=== PATIENT | female | born 1990 | race Caucasian/White ===

== ENCOUNTER 2021-08-08 01:57 | Emergency (ER) | payer SELFPAY ==
[2021-08-08 03:12] LABS: BASO % 0.5 % (0-2.0); EOS % 0.7 % (0-4.5); HEMATOCRIT 32.3 % (32.4-45.2); HEMOGLOBIN 10.9 GM/dL (10.7-15.3); LYMPH % 28.5 % (8-40); MCH 26.2 pg (25.7-33.7); MCHC 33.7 g/dl (32.0-36.0); MEAN CELL VOLUME 77.7 fl (80-96); MEAN PLT VOLUME 7.8 fl (7.5-11.1); MONO % 4.5 % (3.8-10.2); NEUT % 65.8 % (42.8-82.8); PLATELET COUNT 272 10^3/uL (134-434); RBC 4.16 M/mm3 (3.60-5.2); RDW 15.3 % (11.6-15.6); WHITE BLOOD COUNT 6.7 K/mm3 (4.0-10.0)
[2021-08-08 03:35] LABS: ALBUMIN 3.4 g/dl (3.4-5.0); BLOOD UREA NITROGEN 8.3 mg/dL (7-18)
[2021-08-08 03:38] LABS: CREATININE 0.6 mg/dL (0.55-1.3)
[2021-08-08 03:39] LABS: BILIRUBIN,TOTAL 0.2 mg/dL (0.2-1); TOT PROT 6.7 g/dl (6.4-8.2)
[2021-08-08 03:51] LABS: HCG,QUALITATIVE URINE Positive
[2021-08-08 03:55] LABS: EPI CELLS 7 /uL (0-25.1); HYALINE CASTS 0 /uL (0-3.1); PH,URINE 6.5 (5.0-8.0); URINE APPEARANCE CLEAR; URINE BACTERIA 35 /uL (0-1359); URINE BILIRUBIN NEGATIVE (NEGATIVE); URINE COLOR YELLOW; URINE GLUCOSE (UA) NEGATIVE (NEGATIVE); URINE KETONE NEGATIVE (NEGATIVE); URINE LEUK ESTERASE TRACE (NEGATIVE); URINE NITRITE NEGATIVE (NEGATIVE); URINE PROTEIN NEGATIVE (NEGATIVE); URINE RBC 1 /uL (0-23.9); URINE UROBILINOGEN 0.2 mg/dL (0.2-1.0); URINE WBC 12 /uL (0-25.8)
[2021-08-08] MEDS ORDERED: ACETAMINOPHEN 1000 MG/100 ML BAG IVPB ONE (05:41)
[2021-08-08] MEDS ORDERED: CEFTRIAXONE 1,000 MG in DEXTROSE 5%-WATER - 50 ML IVPB ONE (05:41)
[2021-08-08] MEDS ORDERED: ACETAMINOPHEN INJECTION 100 ML IVPB ONE (05:47)
[2021-08-08] MEDS ORDERED: CEFTRIAXONE 1 GM/50 ML BAG ONE (05:48)
[2021-08-08 09:25] VITALS: TEMP 98.4
[2021-08-08 11:46] VITALS: BP 110/70; PULSE 71
== END 2021-08-08 11:46 | disposition home or self-care (01) ==
LOC: JER 01:57
PROC: 3E033GC Introduction of Other Therapeutic Substance into Peripheral Vein, Percutaneous Approach (ICD-10-PCS; principal; 2021-08-08)
DX: O46.8X1 Other antepartum hemorrhage, first trimester (principal); O23.41 Unspecified infection of urinary tract in pregnancy, first trimester; Z3A.01 Less than 8 weeks gestation of pregnancy
CPT/HCPCS: 36415; 76817-TC; 80053; 81003; 84702; 84703; 85025; 86850; 86900; 86901; 87086; 99284-25

== ENCOUNTER 2022-04-05 08:15 | Inpatient (IN) | payer OTHER ==
[2022-04-05] MEDS ORDERED: DINOPROSTONE 10 MG VAGINAL SUPPOSITORY VG ONE (09:42)
[2022-04-05] MEDS: ELECTROLYTE-148 SOLN 1,000 ML IV SCH (10:00)
[2022-04-05 10:36] VITALS: BMI 25.7
[2022-04-05 11:47] LABS: BASO % 0.4 % (0-2.0); EOS % 0.4 % (0-4.5); HEMATOCRIT 35.9 % (32.4-45.2); HEMOGLOBIN 12.4 GM/dL (10.7-15.3); INR 0.85 (0.83-1.09); LYMPH % 23.1 % (8-40); MCH 31.7 pg (25.7-33.7); MCHC 34.6 g/dl (32.0-36.0); MEAN CELL VOLUME 91.6 fl (80-96); MEAN PLT VOLUME 8.6 fl (7.5-11.1); MONO % 5.2 % (3.8-10.2); NEUT % 70.9 % (42.8-82.8); PLATELET COUNT 252 10^3/uL (134-434); PROTHROMBIN TIME (PATIENT) 9.8 SEC (9.7-13.0); RBC 3.92 M/mm3 (3.60-5.2); RDW 12.9 % (11.6-15.6); WHITE BLOOD COUNT 6.6 K/mm3 (4.0-10.0)
[2022-04-05 11:50] LABS: ACTIVATED PTT 29.9 SECONDS (25.2-36.5)
[2022-04-05 12:04] LABS: CALCIUM 8.8 mg/dL (8.5-10.1)
[2022-04-05 12:05] LABS: BLOOD UREA NITROGEN 11.1 mg/dL (7-18)
[2022-04-05 12:08] LABS: CREATININE 0.7 mg/dL (0.55-1.3)
[2022-04-05] MEDS ORDERED: PROMETHAZINE HCL 25 MG/1 ML VIAL IVPB ONE (22:14)
[2022-04-05] MEDS ORDERED: BUTORPHANOL TARTRATE 1 MG/ML VIAL IVPB ONE (22:14)
[2022-04-05] MEDS ORDERED: OXYTOCIN 30 UNITS in 0.9% NS 30 UNIT/500 ML INFUS.BAG IVPB ONE (22:55)
[2022-04-05] MEDS: OXYTOCIN 30 UNITS in 0.9% NS 30 UNIT/500 ML INFUS.BAG IVPB SCH (23:00)
[2022-04-06] MEDS: ELECTROLYTE-148 SOLN 1,000 ML IV SCH ×3 (00:30→20:35)
[2022-04-06] MEDS ORDERED: BUTORPHANOL TARTRATE 2 MG/ML VIAL ONE (00:36)
[2022-04-06] MEDS ORDERED: PROMETHAZINE HCL 25 MG/1 ML VIAL ONE (00:37)
[2022-04-06] MEDS ORDERED: BUPIVACAINE HCL/PF 0.25% (2.5MG/ML) 10 ML VIAL ONE ×3 (07:36→23:40)
[2022-04-06] MEDS ORDERED: FENTANYL/BUPIVACAINE/NS/PF - PCEA - 50 ML DISP.SYRIN EP ONE ×5 (07:54→23:40)
[2022-04-06] MEDS: FENTANYL/BUPIVACAINE/NS/PF - PCEA - 50 ML DISP.SYRIN EP SCH ×5 (07:55→23:53)
[2022-04-06] MEDS ORDERED: NALOXONE HCL 0.4 MG/ML VIAL IVPUSH PRN (08:08)
[2022-04-06] MEDS: OXYTOCIN 30 UNITS in 0.9% NS 30 UNIT/500 ML INFUS.BAG IVPB SCH (20:30)
[2022-04-06] MEDS ORDERED: FENTANYL CITRATE/PF 50 MCG/ML VIAL ONE ×2 (21:55→23:41)
[2022-04-07] MEDS ORDERED: FENTANYL/BUPIVACAINE/NS/PF - PCEA - 50 ML DISP.SYRIN EP ONE ×2 (02:18→05:13)
[2022-04-07] MEDS: FENTANYL/BUPIVACAINE/NS/PF - PCEA - 50 ML DISP.SYRIN EP SCH (02:30)
[2022-04-07] MEDS ORDERED: BUPIVACAINE HCL/PF 0.25% (2.5MG/ML) 10 ML VIAL ONE ×2 (03:35→06:21)
[2022-04-07] MEDS ORDERED: FENTANYL CITRATE/PF 50 MCG/ML VIAL ONE ×3 (03:36→08:16)
[2022-04-07] MEDS ORDERED: CITRIC ACID/SODIUM CITRATE 30 ML UNIT-DOSE CUP PO ONE (08:11)
[2022-04-07] MEDS ORDERED: LIDO 2%/EPI 1:200000 PRESRVFRE (20 ML SDVIAL) ONE ×2 (08:14)
[2022-04-07] MEDS ORDERED: OXYTOCIN 30 UNITS in 0.9% NS 30 UNIT/500 ML INFUS.BAG IVPB ONE (08:25)
[2022-04-07] MEDS ORDERED: morphine SULFATE/PF 1 MG/2 ML (2cc Syringe - QUVA) EP ONE (08:40)
[2022-04-07] MEDS ORDERED: morphine SULFATE/PF 1 MG/2 ML (2cc Syringe - QUVA) ONE (08:50)
[2022-04-07] MEDS ORDERED: ceFAZolin SODIUM 1 GM VIAL ONE ×2 (08:58)
[2022-04-07] MEDS ORDERED: IBUPROFEN 800 MG/8 ML IJ IVPB PRN (09:38)
[2022-04-07] MEDS ORDERED: BENZOCAINE 28 GM HEMORRHOIDAL OINTMENT TP PRN (09:38)
[2022-04-07] MEDS ORDERED: METHYLERGONOVINE MALEATE 0.2 MG/1 ML AMP IM PRN (09:38)
[2022-04-07] MEDS ORDERED: WITCH HAZEL 50% (TUCKS) 40 PAD/JAR PAD TP PRN (09:38)
[2022-04-07] MEDS ORDERED: BENZOCAINE 20% 57 GM BOTTLE TP PRN (09:38)
[2022-04-07] MEDS ORDERED: FENTANYL/BUPIVACAINE/NS/PF - PCEA - 50 ML DISP.SYRIN EP SCH (09:45)
[2022-04-07] MEDS ORDERED: NALOXONE HCL 0.4 MG/ML VIAL IVPUSH PRN (09:45)
[2022-04-07] MEDS: OXYTOCIN 20 UNITS in 0.9% NS 20 UNIT/1,000 ML INFUS.BAG IV SCH ×2 (10:30→15:37)
[2022-04-07] MEDS: PRENATAL VITAMINS W/ FOLIC ACID TABLET (FP) PO SCH (12:16)
[2022-04-07] MEDS ORDERED: OXYTOCIN 20 UNITS in 0.9% NS 20 UNIT/1,000 ML INFUS.BAG IV ONE (15:33)
[2022-04-07] MEDS ORDERED: oxyCODONE HCL 5 MG TABLET PO PRN (21:38)
[2022-04-08 09:01] LABS: BASO % 0.5 % (0-2.0); EOS % 0.4 % (0-4.5); HEMATOCRIT 31.8 % (32.4-45.2); HEMOGLOBIN 10.8 GM/dL (10.7-15.3); LYMPH % 15.3 % (8-40); MCH 31.2 pg (25.7-33.7); MCHC 34.1 g/dl (32.0-36.0); MEAN CELL VOLUME 91.6 fl (80-96); MEAN PLT VOLUME 8.5 fl (7.5-11.1); NEUT % 79.8 % (42.8-82.8); PLATELET COUNT 312 10^3/uL (134-434); RBC 3.47 M/mm3 (3.60-5.2); RDW 13.4 % (11.6-15.6); WHITE BLOOD COUNT 11.8 K/mm3 (4.0-10.0)
[2022-04-08] MEDS ORDERED: BISACODYL 10 MG SUPP.RECT RC PRN (09:38)
[2022-04-08] MEDS: ACETAMINOPHEN 325 MG TABLET (FP) PO PRN (09:57)
[2022-04-08] MEDS: PRENATAL VITAMINS W/ FOLIC ACID TABLET (FP) PO SCH (09:57)
[2022-04-08] MEDS: SIMETHICONE 80 MG TAB.CHEW (FP) PO PRN ×2 (09:57→19:48)
[2022-04-08] MEDS ORDERED: DIPHTH,PERTUSS(ACELL),TET 0.5 ML DISP.SYRIN IM ONE (10:00)
[2022-04-08] MEDS ORDERED: FLU VACC QS2022-23(6MOS UP)/PF 60 MCG/0.5 ML SYRINGE IM ONE (10:00)
[2022-04-08] MEDS: IBUPROFEN 600 MG TABLET (FP) PO PRN ×2 (12:10→19:47)
[2022-04-08] MEDS: OXYTOCIN 20 UNITS in 0.9% NS 20 UNIT/1,000 ML INFUS.BAG IV SCH (16:40)
[2022-04-09] MEDS: SIMETHICONE 80 MG TAB.CHEW (FP) PO PRN ×3 (00:33→20:22)
[2022-04-09] MEDS: ACETAMINOPHEN 325 MG TABLET (FP) PO PRN (00:33)
[2022-04-09] MEDS: PRENATAL VITAMINS W/ FOLIC ACID TABLET (FP) PO SCH (11:00)
[2022-04-09] MEDS: IBUPROFEN 600 MG TABLET (FP) PO PRN ×2 (11:57→20:21)
[2022-04-09] MEDS: FENTANYL/BUPIVACAINE/NS/PF - PCEA - 50 ML DISP.SYRIN EP SCH (13:01)
[2022-04-09 22:09] VITALS: RESP 17
[2022-04-10] MEDS: SIMETHICONE 80 MG TAB.CHEW (FP) PO PRN (04:00)
[2022-04-10] MEDS: IBUPROFEN 600 MG TABLET (FP) PO PRN (04:00)
[2022-04-10 09:05] VITALS: BP 118/74; PULSE 82; TEMP 98.3
[2022-04-10] MEDS: PRENATAL VITAMINS W/ FOLIC ACID TABLET (FP) PO SCH (09:35)
[2022-04-10] MEDS ORDERED: DIPHTH,PERTUSS(ACELL),TET 0.5 ML DISP.SYRIN IM ONE (10:00)
[2022-04-10 11:00] LABS: BASO % 0.3 % (0-2.0); EOS % 0.9 % (0-4.5); HEMOGLOBIN 9.5 GM/dL (10.7-15.3); LYMPH % 17.7 % (8-40); MCH 31.4 pg (25.7-33.7); MEAN CELL VOLUME 92.5 fl (80-96); MEAN PLT VOLUME 8.1 fl (7.5-11.1); MONO % 3.2 % (3.8-10.2); NEUT % 77.9 % (42.8-82.8); PLATELET COUNT 323 10^3/uL (134-434); RBC 3.02 M/mm3 (3.60-5.2); RDW 13.5 % (11.6-15.6); WHITE BLOOD COUNT 10.6 K/mm3 (4.0-10.0)
== END 2022-04-10 12:23 | disposition home or self-care (01) | DRG 540 ==
LOC: JLDR 08:15 → J3W 04-07 11:43
PROVIDERS: ADMIT Obstetrics & Gynecology; ATTEND Obstetrics & Gynecology
PROC: 3E0P7VZ Introduction of Hormone into Female Reproductive, Via Natural or Artificial Opening (ICD-10-PCS; 2022-04-05)
PROC: 10D00Z1 Extraction of Products of Conception, Low, Open Approach (ICD-10-PCS; principal; 2022-04-07)
DX: O61.0 Failed medical induction of labor (principal); O48.0 Post-term pregnancy; O62.1 Secondary uterine inertia; Z3A.41 41 weeks gestation of pregnancy; Z37.0 Single live birth
CPT/HCPCS: 36415; 80048; 85025; 85610; 85730; 86780; 86850; 86900; 86901; 88307-TC; 90715; C9803-CS; G0008; Q2036; U0003; U0005

== ENCOUNTER 2022-05-16 07:42 | Emergency (ER) | payer OTHER ==
[2022-05-16 08:10] VITALS: BMI 21.4
[2022-05-16] MEDS ORDERED: ACETAMINOPHEN 1000 MG/100 ML BAG IVPB ONE ×3 (11:07→16:58)
[2022-05-16] MEDS ORDERED: ONDANSETRON 4 MG/2 ML VIAL IVPUSH ONE (11:07)
[2022-05-16] MEDS ORDERED: FAMOTIDINE 20 MG/50 ML IVPB 20 MG/50 ML MG IVPB ONE ×2 (11:07→11:21)
[2022-05-16] MEDS ORDERED: LACTATED RINGERS SOLUTION 1000 ML INFUS.BAG IV ONE (11:08)
[2022-05-16] MEDS ORDERED: ACETAMINOPHEN INJECTION 100 ML IVPB ONE (11:21)
[2022-05-16] MEDS ORDERED: ONDANSETRON 4 MG/2 ML VIAL ONE (11:21)
[2022-05-16 12:42] LABS: HEMATOCRIT 39.3 % (32.4-45.2); HEMOGLOBIN 13.1 GM/dL (10.7-15.3); MCH 29.6 pg (25.7-33.7); MCHC 33.3 g/dl (32.0-36.0); MEAN CELL VOLUME 88.7 fl (80-96); MEAN PLT VOLUME 7.6 fl (7.5-11.1); PLATELET COUNT 316 10^3/uL (134-434); RBC 4.44 M/mm3 (3.60-5.2); RDW 13.7 % (11.6-15.6); WHITE BLOOD COUNT 14.6 K/mm3 (4.0-10.0)
[2022-05-16 13:02] LABS: CALCIUM 9.5 mg/dL (8.5-10.1)
[2022-05-16 13:03] LABS: ALBUMIN 4.2 g/dl (3.4-5.0); MAGNESIUM 2.3 mg/dL (1.8-2.4)
[2022-05-16 13:06] LABS: CREATININE 0.8 mg/dL (0.55-1.3)
[2022-05-16 13:07] LABS: BILIRUBIN,TOTAL 0.4 mg/dL (0.2-1)
[2022-05-16 13:12] LABS: PH,URINE 5.5 (5.0-8.0); URINE APPEARANCE CLOUDY; URINE BILIRUBIN NEGATIVE (NEGATIVE); URINE COLOR YELLOW; URINE GLUCOSE (UA) NEGATIVE (NEGATIVE); URINE KETONE NEGATIVE (NEGATIVE); URINE LEUK ESTERASE NEGATIVE (NEGATIVE); URINE NITRITE NEGATIVE (NEGATIVE); URINE PROTEIN NEGATIVE (NEGATIVE); URINE UROBILINOGEN 0.2 mg/dL (0.2-1.0)
[2022-05-16 13:36] LABS: ANISOCYTOSIS 1+; MACROCYTOSIS 0
[2022-05-16 17:58] VITALS: BP 117/67; PULSE 80; RESP 16; TEMP 97.9
== END 2022-05-16 18:10 | disposition home or self-care (01) ==
LOC: JER 07:42
PROC: 3E0333Z Introduction of Anti-inflammatory into Peripheral Vein, Percutaneous Approach (ICD-10-PCS; principal; 2022-05-16)
PROC: 3E033GC Introduction of Other Therapeutic Substance into Peripheral Vein, Percutaneous Approach (ICD-10-PCS; 2022-05-16)
PROC: 3E033GC Introduction of Other Therapeutic Substance into Peripheral Vein, Percutaneous Approach (ICD-10-PCS; 2022-05-16)
DX: R11.2 Nausea with vomiting, unspecified (principal); R10.13 Epigastric pain
CPT/HCPCS: 36415; 76705-TC; 80053; 81003; 83690; 83735; 84703; 85025; 87086; 93005; 93010; 99285-25

== ENCOUNTER 2023-01-31 15:39 | Inpatient (IN) | payer OTHER ==
[2023-01-31 16:44] LABS: PH,URINE 5.5 (5.0-8.0); URINE APPEARANCE CLEAR; URINE BILIRUBIN NEGATIVE (NEGATIVE); URINE COLOR YELLOW; URINE GLUCOSE (UA) 2+ (NEGATIVE); URINE KETONE TRACE (NEGATIVE); URINE LEUK ESTERASE NEGATIVE (NEGATIVE); URINE NITRITE NEGATIVE (NEGATIVE); URINE PROTEIN TRACE (NEGATIVE); URINE UROBILINOGEN 0.2 mg/dL (0.2-1.0)
[2023-01-31] MEDS ORDERED: SODIUM CHLORIDE 0.9% 1000 ML INFUS.BAG IV ONE (16:45)
[2023-01-31] MEDS ORDERED: ONDANSETRON 4 MG/2 ML VIAL IVPUSH ONE ×2 (16:47→18:09)
[2023-01-31] MEDS ORDERED: ONDANSETRON 4 MG/2 ML VIAL ONE ×2 (16:54→17:57)
[2023-01-31 17:15] LABS: BASO % 0.3 % (0-2.0); HEMATOCRIT 34.3 % (32.4-45.2); HEMOGLOBIN 10.7 GM/dL (10.7-15.3); LYMPH % 4.2 % (8-40); MCH 22.4 pg (25.7-33.7); MCHC 31.3 g/dl (32.0-36.0); MEAN CELL VOLUME 71.5 fl (80-96); MEAN PLT VOLUME 8.2 fl (7.5-11.1); MONO % 2.9 % (3.8-10.2); NEUT % 92.6 % (42.8-82.8); PLATELET COUNT 332 10^3/uL (134-434); RBC 4.79 M/mm3 (3.60-5.2); RDW 17.2 % (11.6-15.6); WHITE BLOOD COUNT 16.4 K/mm3 (4.0-10.0)
[2023-01-31 17:33] LABS: POTASSIUM 3.8 mmol/L (3.5-5.1)
[2023-01-31 17:36] LABS: ALBUMIN 3.8 g/dl (3.4-5.0); BLOOD UREA NITROGEN 13.1 mg/dL (7-18); CALCIUM 8.5 mg/dL (8.5-10.1)
[2023-01-31 17:39] LABS: CREATININE 0.7 mg/dL (0.55-1.3)
[2023-01-31 17:41] LABS: BILIRUBIN,TOTAL 0.2 mg/dL (0.2-1); TOT PROT 7.5 g/dl (6.4-8.2)
[2023-01-31 17:52] LABS: ANISOCYTOSIS 2+; MACROCYTOSIS 0; OVALOCYTE 1+
[2023-01-31] MEDS ORDERED: morphine SULFATE 4 MG/ML VIAL ONE ×2 (17:57→20:34)
[2023-01-31] MEDS ORDERED: morphine CARPU-JECT 4 MG/1 ML DISP.SYRIN IVPUSH ONE ×2 (18:09→20:15)
[2023-01-31] MEDS ORDERED: PIPERACILLIN/TAZOB 4.5 GM 4.5 GM in DEXTROSE 5%-WATER 100 ML IVPB ONE (20:06)
[2023-01-31] MEDS ORDERED: SODIUM CHLORIDE 0.9% 500 ML INFUS.BAG IV ONE (20:15)
[2023-01-31] MEDS ORDERED: PIPERACILLIN/TAZOB 4.5 GM 4.5 GM/100 ML BAG IVPB ONE (20:34)
[2023-01-31] MEDS ORDERED: ONDANSETRON 4 MG/2 ML VIAL IVPUSH PRN (22:27)
[2023-01-31] MEDS ORDERED: LACTATED RINGERS SOLUTION 1,000 ML/1,000 ML INFUS.BAG IV SCH (22:30)
[2023-02-01 01:37] VITALS: BMI 24.8
[2023-02-01] MEDS: AMPICILLIN NA/SULBACTAM NA 1.5 GM in SODIUM CHLORIDE 100 ML IVPB SCH ×4 (02:19→21:02)
[2023-02-01] MEDS ORDERED: ACETAMINOPHEN 1000 MG/100 ML BAG IVPB ONE (05:10)
[2023-02-01 08:07] LABS: HEMATOCRIT 28.5 % (32.4-45.2); HEMOGLOBIN 9.3 GM/dL (10.7-15.3); MCH 22.9 pg (25.7-33.7); MCHC 32.6 g/dl (32.0-36.0); MEAN CELL VOLUME 70.3 fl (80-96); MEAN PLT VOLUME 8.3 fl (7.5-11.1); PLATELET COUNT 239 10^3/uL (134-434); RBC 4.06 M/mm3 (3.60-5.2); RDW 17.2 % (11.6-15.6); WHITE BLOOD COUNT 8.8 K/mm3 (4.0-10.0)
[2023-02-01 08:38] LABS: BLOOD UREA NITROGEN 8.8 mg/dL (7-18)
[2023-02-01 08:41] LABS: CREATININE 0.6 mg/dL (0.55-1.3)
[2023-02-01 08:44] LABS: BILIRUBIN,TOTAL 0.6 mg/dL (0.2-1)
[2023-02-01 08:45] LABS: ALBUMIN 2.7 g/dl (3.4-5.0); CALCIUM 7.2 mg/dL (8.5-10.1); TOT PROT 5.2 g/dl (6.4-8.2)
[2023-02-01] MEDS ORDERED: ONDANSETRON 4 MG/2 ML VIAL ONE (09:11)
[2023-02-01] MEDS ORDERED: PROPOFOL 20 ML ONE ×2 (09:11→10:23)
[2023-02-01] MEDS ORDERED: LIDOCAINE HCL/PF 2% SDV 5ML VIAL ONE (09:11)
[2023-02-01] MEDS ORDERED: SUGAMMADEX SODIUM 200 MG/2 ML VIAL ONE (09:11)
[2023-02-01] MEDS ORDERED: DEXAMETHASONE SOD PHOSPHATE 4 MG/1 ML VIAL ONE (09:11)
[2023-02-01] MEDS ORDERED: KETOROLAC TROMETHAMINE 30 MG/1 ML VIAL ONE (09:11)
[2023-02-01] MEDS ORDERED: MIDAZOLAM HCL 2 MG/2 ML SINGLE DOSE VIAL ONE (09:12)
[2023-02-01] MEDS ORDERED: ROCURONIUM BROMIDE 50 MG/5 ML SYRINGE ONE (09:12)
[2023-02-01] MEDS ORDERED: BUPIVACAINE HCL/PF 0.25% (2.5MG/ML) 10 ML VIAL ONE (09:23)
[2023-02-01] MEDS ORDERED: ACETAMINOPHEN INJECTION 100 ML IVPB ONE (09:23)
[2023-02-01] MEDS ORDERED: cefOXitin SODIUM 2 GM VIAL (RESTRICTED TO ID) IVPB ONE ×2 (09:26→09:35)
[2023-02-01] MEDS ORDERED: BUPIVACAINE HCL/PF 0.25% (2.5MG/ML) 10 ML VIAL IJ ONE (10:30)
[2023-02-01] MEDS ORDERED: ONDANSETRON 4 MG/2 ML VIAL IVPUSH PRN ×2 (10:47→10:53)
[2023-02-01] MEDS ORDERED: LACTATED RINGERS SOLUTION 1,000 ML IV SCH (11:00)
[2023-02-01] MEDS: SODIUM CHLORIDE 1,000 ML IV SCH ×2 (11:06→22:03)
[2023-02-01] MEDS: oxyCODONE HCL 5 MG TABLET PO PRN (21:08)
[2023-02-02] MEDS: ACETAMINOPHEN 500 MG TABLET (FP) PO PRN ×2 (02:09→13:21)
[2023-02-02] MEDS: AMPICILLIN NA/SULBACTAM NA 1.5 GM in SODIUM CHLORIDE 100 ML IVPB SCH ×3 (02:10→14:30)
[2023-02-02] MEDS: oxyCODONE HCL 5 MG TABLET PO PRN (06:31)
[2023-02-02] MEDS: SODIUM CHLORIDE 1,000 ML IV SCH ×2 (07:33→13:22)
[2023-02-02 09:36] LABS: BASO % 0.1 % (0-2.0); HEMATOCRIT 25.1 % (32.4-45.2); HEMOGLOBIN 8.2 GM/dL (10.7-15.3); LYMPH % 9.2 % (8-40); MCH 23.2 pg (25.7-33.7); MCHC 32.8 g/dl (32.0-36.0); MEAN CELL VOLUME 70.6 fl (80-96); MEAN PLT VOLUME 8.2 fl (7.5-11.1); MONO % 1.9 % (3.8-10.2); NEUT % 88.8 % (42.8-82.8); PLATELET COUNT 237 10^3/uL (134-434); RBC 3.55 M/mm3 (3.60-5.2); RDW 17.6 % (11.6-15.6); WHITE BLOOD COUNT 10.6 K/mm3 (4.0-10.0)
[2023-02-02 09:55] LABS: BLOOD UREA NITROGEN 10.9 mg/dL (7-18)
[2023-02-02 09:59] LABS: CREATININE 0.5 mg/dL (0.55-1.3)
[2023-02-02] MEDS ORDERED: PIPERACILLIN/TAZOB 4.5 GM 4.5 GM in DEXTROSE 5%-WATER 100 ML IVPB SCH (15:30)
[2023-02-02] MEDS: KCL 10 MEQ IVPB 10 MEQ/100 ML INFUS.BAG IVPB SCH ×3 (15:34→18:11)
[2023-02-02 16:01] LABS: MAGNESIUM 1.6 mg/dL (1.8-2.4)
[2023-02-02 16:05] LABS: PHOSPHOROUS 1.5 mg/dL (2.5-4.9)
[2023-02-02] MEDS: PIPERACILLIN/TAZOB 4.5 GM 4.5 GM in DEXTROSE 5%-WATER 100 ML IVPB SCH ×2 (16:48→21:37)
[2023-02-02] MEDS ORDERED: ACETAMINOPHEN 1000 MG/100 ML BAG IVPB ONE (20:43)
[2023-02-02] MEDS ORDERED: MAGNESIUM 1GM/D5W 100ML - 100 ML IVPB IVPB ONE (21:26)
[2023-02-02] MEDS: NAPH,MB-DB/K PH,MBDB POWDER PACKET PO SCH (22:54)
[2023-02-03] MEDS: PIPERACILLIN/TAZOB 4.5 GM 4.5 GM in DEXTROSE 5%-WATER 100 ML IVPB SCH ×2 (03:55→08:53)
[2023-02-03] MEDS: oxyCODONE HCL 5 MG TABLET PO PRN ×2 (04:04→10:59)
[2023-02-03] MEDS: SODIUM CHLORIDE 1,000 ML IV SCH (08:59)
[2023-02-03] MEDS: NAPH,MB-DB/K PH,MBDB POWDER PACKET PO SCH ×3 (09:21→21:27)
[2023-02-03 10:12] LABS: HEMATOCRIT 25.4 % (32.4-45.2); HEMOGLOBIN 8.5 GM/dL (10.7-15.3); MCH 23.1 pg (25.7-33.7); MCHC 33.5 g/dl (32.0-36.0); MEAN CELL VOLUME 68.9 fl (80-96); MEAN PLT VOLUME 8.2 fl (7.5-11.1); PLATELET COUNT 266 10^3/uL (134-434); RBC 3.69 M/mm3 (3.60-5.2); RDW 17.8 % (11.6-15.6); WHITE BLOOD COUNT 11.6 K/mm3 (4.0-10.0)
[2023-02-03 10:44] LABS: POTASSIUM 3.1 mmol/L (3.5-5.1)
[2023-02-03 10:49] LABS: CALCIUM 7.4 mg/dL (8.5-10.1)
[2023-02-03 10:50] LABS: BLOOD UREA NITROGEN 5.4 mg/dL (7-18); MAGNESIUM 2.1 mg/dL (1.8-2.4)
[2023-02-03 10:51] LABS: ANISOCYTOSIS 1+; MACROCYTOSIS 0
[2023-02-03 10:53] LABS: CREATININE 0.5 mg/dL (0.55-1.3); PHOSPHOROUS 1.4 mg/dL (2.5-4.9)
[2023-02-03] MEDS ORDERED: POTASSIUM CHLORIDE TABS 20 MEQ TABLET.ER (FP) PO SCH (13:00)
[2023-02-03] MEDS: ACETAMINOPHEN 500 MG TABLET (FP) PO PRN ×2 (13:06→20:28)
[2023-02-03 14:46] LABS: EPI CELLS 30 /uL (0-25.1); HYALINE CASTS 0 /uL (0-3.1); PH,URINE 7.5 (5.0-8.0); URINE APPEARANCE CLEAR; URINE BACTERIA 3 /uL (0-1359); URINE BILIRUBIN NEGATIVE (NEGATIVE); URINE COLOR YELLOW; URINE GLUCOSE (UA) NEGATIVE (NEGATIVE); URINE KETONE TRACE (NEGATIVE); URINE LEUK ESTERASE NEGATIVE (NEGATIVE); URINE NITRITE NEGATIVE (NEGATIVE); URINE PROTEIN TRACE (NEGATIVE); URINE RBC 8 /uL (0-23.9); URINE UROBILINOGEN 0.2 mg/dL (0.2-1.0); URINE WBC 5 /uL (0-25.8)
[2023-02-03] MEDS: PIPERACILLIN/TAZOB 3.375 GM 3.375 GM in DEXTROSE 5%-WATER - 50 ML IVPB SCH (17:30)
[2023-02-03] MEDS: POTASSIUM CHLORIDE TABS 20 MEQ TABLET.ER (FP) PO SCH (21:27)
[2023-02-04] MEDS: PIPERACILLIN/TAZOB 3.375 GM 3.375 GM in DEXTROSE 5%-WATER - 50 ML IVPB SCH ×3 (01:09→17:26)
[2023-02-04] MEDS: NAPH,MB-DB/K PH,MBDB POWDER PACKET PO SCH ×2 (05:36→13:39)
[2023-02-04] MEDS: ACETAMINOPHEN 500 MG TABLET (FP) PO PRN ×2 (05:51→17:31)
[2023-02-04] MEDS: POTASSIUM CHLORIDE TABS 20 MEQ TABLET.ER (FP) PO SCH (09:15)
[2023-02-04 09:59] LABS: HEMATOCRIT 27.6 % (32.4-45.2); MCH 22.8 pg (25.7-33.7); MCHC 32.5 g/dl (32.0-36.0); MEAN PLT VOLUME 8.2 fl (7.5-11.1); PLATELET COUNT 351 10^3/uL (134-434); RBC 3.95 M/mm3 (3.60-5.2); RDW 17.8 % (11.6-15.6); WHITE BLOOD COUNT 9.4 K/mm3 (4.0-10.0)
[2023-02-04 10:27] LABS: POTASSIUM 3.9 mmol/L (3.5-5.1)
[2023-02-04 10:29] LABS: CALCIUM 8.3 mg/dL (8.5-10.1)
[2023-02-04 10:30] LABS: ALBUMIN 2.6 g/dl (3.4-5.0); BLOOD UREA NITROGEN 5.8 mg/dL (7-18); MAGNESIUM 2.2 mg/dL (1.8-2.4)
[2023-02-04 10:34] LABS: CREATININE 0.5 mg/dL (0.55-1.3)
[2023-02-04 10:35] LABS: BILIRUBIN,TOTAL 0.5 mg/dL (0.2-1); TOT PROT 6.5 g/dl (6.4-8.2)
[2023-02-04 10:36] LABS: PHOSPHOROUS 2.7 mg/dL (2.5-4.9)
[2023-02-04 13:56] LABS: INR 1.16 (0.83-1.09); PROTHROMBIN TIME (PATIENT) 13.4 SEC (9.7-13.0)
[2023-02-05] MEDS ORDERED: PIPERACILLIN/TAZOBACTAM 3.375 GM VIAL IVPB ONE (00:31)
[2023-02-05] MEDS: PIPERACILLIN/TAZOB 3.375 GM 3.375 GM in DEXTROSE 5%-WATER - 50 ML IVPB SCH ×3 (01:31→18:45)
[2023-02-05] MEDS: ACETAMINOPHEN 500 MG TABLET (FP) PO PRN ×2 (05:57→20:17)
[2023-02-05] MEDS ORDERED: MIDAZOLAM HCL 2 MG/2 ML SINGLE DOSE VIAL ONE (09:10)
[2023-02-05] MEDS ORDERED: FENTANYL CITRATE/PF 50 MCG/ML VIAL ONE (09:11)
[2023-02-05] MEDS ORDERED: SODIUM CHLORIDE 500 ML IV SCH (10:10)
[2023-02-05] MEDS ORDERED: FENTANYL CITRATE/PF 50 MCG/ML VIAL IVPUSH ONE ×2 (10:15→10:22)
[2023-02-05] MEDS ORDERED: MIDAZOLAM HCL 2 MG/2 ML SINGLE DOSE VIAL IVPUSH ONE (10:15)
[2023-02-05 10:27] LABS: HEMATOCRIT 27.4 % (32.4-45.2); HEMOGLOBIN 8.9 GM/dL (10.7-15.3); MCH 22.6 pg (25.7-33.7); MCHC 32.5 g/dl (32.0-36.0); MEAN CELL VOLUME 69.5 fl (80-96); PLATELET COUNT 402 10^3/uL (134-434); RBC 3.95 M/mm3 (3.60-5.2); RDW 17.7 % (11.6-15.6); WHITE BLOOD COUNT 8.7 K/mm3 (4.0-10.0)
[2023-02-05 10:42] LABS: POTASSIUM 4.1 mmol/L (3.5-5.1)
[2023-02-05 10:54] LABS: ALBUMIN 2.5 g/dl (3.4-5.0); BLOOD UREA NITROGEN 9.1 mg/dL (7-18); CALCIUM 8.3 mg/dL (8.5-10.1); MAGNESIUM 2.1 mg/dL (1.8-2.4)
[2023-02-05 10:57] LABS: CREATININE 0.4 mg/dL (0.55-1.3); PHOSPHOROUS 3.4 mg/dL (2.5-4.9)
[2023-02-05 10:59] LABS: BILIRUBIN,TOTAL 0.5 mg/dL (0.2-1); TOT PROT 6.3 g/dl (6.4-8.2)
[2023-02-05] MEDS: SODIUM CHLORIDE 1,000 ML IV SCH (21:51)
[2023-02-06] MEDS: PIPERACILLIN/TAZOB 3.375 GM 3.375 GM in DEXTROSE 5%-WATER - 50 ML IVPB SCH ×3 (02:04→18:41)
[2023-02-06 09:24] VITALS: RESP 18
[2023-02-06] MEDS: oxyCODONE HCL 5 MG TABLET PO PRN (10:29)
[2023-02-06 10:44] LABS: HEMATOCRIT 29.3 % (32.4-45.2); HEMOGLOBIN 9.8 GM/dL (10.7-15.3); MCHC 33.5 g/dl (32.0-36.0); MEAN CELL VOLUME 68.7 fl (80-96); MEAN PLT VOLUME 7.4 fl (7.5-11.1); PLATELET COUNT 496 10^3/uL (134-434); RBC 4.27 M/mm3 (3.60-5.2); RDW 17.7 % (11.6-15.6); WHITE BLOOD COUNT 6.5 K/mm3 (4.0-10.0)
[2023-02-06 11:02] LABS: POTASSIUM 3.8 mmol/L (3.5-5.1)
[2023-02-06 11:05] LABS: ALBUMIN 2.6 g/dl (3.4-5.0); BLOOD UREA NITROGEN 9.4 mg/dL (7-18); CALCIUM 8.3 mg/dL (8.5-10.1); MAGNESIUM 2.2 mg/dL (1.8-2.4)
[2023-02-06 11:08] LABS: CREATININE 0.5 mg/dL (0.55-1.3); PHOSPHOROUS 3.2 mg/dL (2.5-4.9)
[2023-02-06 11:10] LABS: BILIRUBIN,TOTAL 0.2 mg/dL (0.2-1); TOT PROT 6.6 g/dl (6.4-8.2)
[2023-02-07] MEDS: ACETAMINOPHEN 500 MG TABLET (FP) PO PRN (00:04)
[2023-02-07] MEDS: PIPERACILLIN/TAZOB 3.375 GM 3.375 GM in DEXTROSE 5%-WATER - 50 ML IVPB SCH ×3 (02:25→17:36)
[2023-02-07] MEDS: IBUPROFEN 600 MG TABLET (FP) PO PRN (09:18)
[2023-02-07 11:35] LABS: HEMATOCRIT 30.3 % (32.4-45.2); HEMOGLOBIN 10.2 GM/dL (10.7-15.3); MCH 23.2 pg (25.7-33.7); MCHC 33.8 g/dl (32.0-36.0); MEAN CELL VOLUME 68.6 fl (80-96); MEAN PLT VOLUME 7.4 fl (7.5-11.1); PLATELET COUNT 579 10^3/uL (134-434); RBC 4.42 M/mm3 (3.60-5.2); RDW 17.7 % (11.6-15.6); WHITE BLOOD COUNT 7.5 K/mm3 (4.0-10.0)
[2023-02-07 11:50] LABS: POTASSIUM 4.3 mmol/L (3.5-5.1)
[2023-02-07 12:17] LABS: BILIRUBIN,TOTAL 0.2 mg/dL (0.2-1); TOT PROT 7.3 g/dl (6.4-8.2)
[2023-02-07 12:22] LABS: PHOSPHOROUS 3.4 mg/dL (2.5-4.9)
[2023-02-07 12:26] LABS: ALBUMIN 2.8 g/dl (3.4-5.0); CREATININE 0.5 mg/dL (0.55-1.3)
[2023-02-07 12:32] LABS: CALCIUM 8.9 mg/dL (8.5-10.1); MAGNESIUM 2.4 mg/dL (1.8-2.4)
[2023-02-08] MEDS: PIPERACILLIN/TAZOB 3.375 GM 3.375 GM in DEXTROSE 5%-WATER - 50 ML IVPB SCH ×3 (02:00→17:00)
[2023-02-08] MEDS: IBUPROFEN 600 MG TABLET (FP) PO PRN (02:12)
[2023-02-08] MEDS ORDERED: oxyCODONE HCL 5 MG TABLET PO PRN (07:46)
[2023-02-08 09:21] LABS: HEMATOCRIT 27.7 % (32.4-45.2); HEMOGLOBIN 9.2 GM/dL (10.7-15.3); MCH 22.8 pg (25.7-33.7); MCHC 33.2 g/dl (32.0-36.0); MEAN CELL VOLUME 68.6 fl (80-96); MEAN PLT VOLUME 7.2 fl (7.5-11.1); PLATELET COUNT 574 10^3/uL (134-434); RBC 4.04 M/mm3 (3.60-5.2); RDW 17.7 % (11.6-15.6); WHITE BLOOD COUNT 7.6 K/mm3 (4.0-10.0)
[2023-02-08 09:30] LABS: BASO % 0.4 % (0-2.0); EOS % 2.1 % (0-4.5); HEMATOCRIT 28.2 % (32.4-45.2); LYMPH % 17.9 % (8-40); MCH 22.2 pg (25.7-33.7); MEAN CELL VOLUME 69.5 fl (80-96); MEAN PLT VOLUME 7.2 fl (7.5-11.1); MONO % 4.6 % (3.8-10.2); PLATELET COUNT 579 10^3/uL (134-434); RBC 4.05 M/mm3 (3.60-5.2); RDW 17.1 % (11.6-15.6); WHITE BLOOD COUNT 7.3 K/mm3 (4.0-10.0)
[2023-02-08 09:44] LABS: POTASSIUM 4.3 mmol/L (3.5-5.1)
[2023-02-08 10:01] LABS: ALBUMIN 2.8 g/dl (3.4-5.0); BLOOD UREA NITROGEN 13.3 mg/dL (7-18); CALCIUM 8.5 mg/dL (8.5-10.1)
[2023-02-08 10:02] LABS: MAGNESIUM 2.2 mg/dL (1.8-2.4)
[2023-02-08 10:04] LABS: CREATININE 0.5 mg/dL (0.55-1.3); PHOSPHOROUS 3.7 mg/dL (2.5-4.9)
[2023-02-08 10:05] LABS: BILIRUBIN,TOTAL 0.4 mg/dL (0.2-1); TOT PROT 6.7 g/dl (6.4-8.2)
[2023-02-08] MEDS: ACETAMINOPHEN 500 MG TABLET (FP) PO PRN (17:00)
[2023-02-09] MEDS: PIPERACILLIN/TAZOB 3.375 GM 3.375 GM in DEXTROSE 5%-WATER - 50 ML IVPB SCH ×3 (01:35→17:28)
[2023-02-09] MEDS: IBUPROFEN 600 MG TABLET (FP) PO PRN (09:04)
[2023-02-09 09:56] LABS: HEMATOCRIT 28.3 % (32.4-45.2); HEMOGLOBIN 9.2 GM/dL (10.7-15.3); MCH 22.9 pg (25.7-33.7); MCHC 32.4 g/dl (32.0-36.0); MEAN CELL VOLUME 70.6 fl (80-96); MEAN PLT VOLUME 7.2 fl (7.5-11.1); PLATELET COUNT 652 10^3/uL (134-434); RBC 4.01 M/mm3 (3.60-5.2); RDW 17.7 % (11.6-15.6); WHITE BLOOD COUNT 7.6 K/mm3 (4.0-10.0)
[2023-02-09 10:00] LABS: POTASSIUM 4.2 mmol/L (3.5-5.1)
[2023-02-09 10:04] LABS: CALCIUM 8.2 mg/dL (8.5-10.1)
[2023-02-09 10:05] LABS: ALBUMIN 2.8 g/dl (3.4-5.0); BLOOD UREA NITROGEN 12.1 mg/dL (7-18); MAGNESIUM 2.1 mg/dL (1.8-2.4)
[2023-02-09 10:08] LABS: CREATININE 0.6 mg/dL (0.55-1.3); PHOSPHOROUS 3.8 mg/dL (2.5-4.9)
[2023-02-09 10:09] LABS: BILIRUBIN,TOTAL 0.2 mg/dL (0.2-1); TOT PROT 6.8 g/dl (6.4-8.2)
[2023-02-10] MEDS: PIPERACILLIN/TAZOB 3.375 GM 3.375 GM in DEXTROSE 5%-WATER - 50 ML IVPB SCH ×3 (01:10→17:19)
[2023-02-10 09:52] LABS: HEMATOCRIT 29.3 % (32.4-45.2); HEMOGLOBIN 9.4 GM/dL (10.7-15.3); MCH 22.7 pg (25.7-33.7); MCHC 32.1 g/dl (32.0-36.0); MEAN CELL VOLUME 70.7 fl (80-96); PLATELET COUNT 751 10^3/uL (134-434); RBC 4.15 M/mm3 (3.60-5.2); RDW 17.7 % (11.6-15.6); WHITE BLOOD COUNT 6.9 K/mm3 (4.0-10.0)
[2023-02-10 10:08] LABS: POTASSIUM 3.9 mmol/L (3.5-5.1)
[2023-02-10 10:09] LABS: CALCIUM 8.2 mg/dL (8.5-10.1)
[2023-02-10 10:10] LABS: BLOOD UREA NITROGEN 11.8 mg/dL (7-18)
[2023-02-10 10:14] LABS: CREATININE 0.6 mg/dL (0.55-1.3); PHOSPHOROUS 3.6 mg/dL (2.5-4.9)
[2023-02-10 10:15] LABS: BILIRUBIN,TOTAL 0.2 mg/dL (0.2-1)
[2023-02-10 15:25] VITALS: BP 115/73; PULSE 84
[2023-02-10 15:29] VITALS: TEMP 97.2
== END 2023-02-10 19:02 | disposition home or self-care (01) | DRG 225 ==
LOC: JER 15:39 → JERBED 18:57 → J6S 22:55
PROVIDERS: ADMIT Internal Medicine; ATTEND Internal Medicine
PROC: 0DTJ4ZZ Resection of Appendix, Percutaneous Endoscopic Approach (ICD-10-PCS; principal; 2023-02-01 09:00)
PROC: 0W9G30Z Drainage of Peritoneal Cavity with Drainage Device, Percutaneous Approach (ICD-10-PCS; 2023-02-05)
PROC: 0WPGX0Z Removal of Drainage Device from Peritoneal Cavity, External Approach (ICD-10-PCS; 2023-02-10)
DX: K35.890 Other acute appendicitis without perforation or gangrene (principal); E78.5 Hyperlipidemia, unspecified; R73.9 Hyperglycemia, unspecified; E83.42 Hypomagnesemia; E83.39 Other disorders of phosphorus metabolism; E87.6 Hypokalemia; K80.80 Other cholelithiasis without obstruction; R50.9 Fever, unspecified; D72.829 Elevated white blood cell count, unspecified; R19.7 Diarrhea, unspecified; J95.89 Other postprocedural complications and disorders of respiratory system, not elsewhere classified; J98.11 Atelectasis; K68.11 Postprocedural retroperitoneal abscess; T81.44XA Sepsis following a procedure, initial encounter; A41.89 Other specified sepsis; Y83.8 Other surgical procedures as the cause of abnormal reaction of the patient, or of later complication, without mention of misadventure at the time of the procedure
CPT/HCPCS: 36415; 49407; 71045-TC-FY; 74177-TC; 76705-TC; 80048; 80053; 81003; 82607; 82728; 82746; 83036; 83540; 83550; 83690; 83735; 84100; 84703; 85025; 85027; 85045; 85610; 87040; 87070; 87075; 87086; 87205; 88304-TC; 93005; 93010; 94010; 94760; 99285-25; A4358; C1729; C1769; Q9967